=== PATIENT | male | born 1955 ===

== ENCOUNTER 2018-08-15 17:51 | Emergency (ER) | payer OTHER ==
--- NOTE | 2018-08-15 17:58 | EDPHY ---
H & P Time Seen by Provider: 08/15/18 17:57 HPI/ROS: CHIEF COMPLAINT: Angioedema HISTORY OF PRESENT ILLNESS: The patient presents to the ED with angioedema. He has been on lisinopril for approximately 10 years. He did have some mild symptoms of lip swelling a week ago. The patient denies any prior history of anaphylaxis or food-borne allergy. The patient denies any additional acute complaints. REVIEW OF SYSTEMS: A comprehensive 10 point review of systems is otherwise negative aside from elements mentioned in the history of present illness. Source: Patient Exam Limitations: No limitations - Medical/Surgical History Hx Diabetes: Yes - Social History Smoking Status: Never smoked - Physical Exam Exam: General Appearance: Alert, no distress Eyes: Pupils equal and round no pallor or injection ENT, Mouth: Mild angioedema noted of the tongue Respiratory: There are no retractions, lungs are clear to auscultation Cardiovascular: Regular rate and rhythm Gastrointestinal: Abdomen is soft and nontender, no masses, bowel sounds normal Neurological: A&O, normal motor function, normal sensory exam, normal cranial nerves Skin: Warm and dry, no rashes Musculoskeletal: Neck is supple nontender Extremities: symmetrical, full range of motion Psychiatric: Patient is oriented X 3, there is no agitation Constitutional: Initial Vital Signs Temperature (C) 36.8 C 08/15/18 17:58 Heart Rate 64 08/15/18 17:58 Respiratory Rate 18 08/15/18 17:58 Blood Pressure 128/93 H 08/15/18 17:58 O2 Sat (%) 95 08/15/18 17:58 O2 Delivery Mode Room Air Allergies/Adverse Reactions: No Known Allergies Allergy (Unverified 08/15/18 18:01) Home Medications: Medication Instructions Recorded Amlodipine Besylate 07/30/13 Lisinopril 07/30/13 Potassium 07/30/13 Allopurinol 12/30/16 Doxazosin Mesylate 12/30/16 Herbals/Supplements -Info Only 12/30/16 Levothyroxine 12/30/16 Metoprolol Succinate 12/30/16 Triamterene-Hctz 37.5-25 mg Cp 12/30/16 Viagra 12/30/16 Medical Decision Making ED Course/Re-evaluation: Patient presents to the ED with 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 Patient was given a single dose of steroids. Patient has been informed that he should stop taking his CHANELLE-inhibitor. He should return to the ED for markedly worsening respiratory symptoms or other concerns. Patient was observed in the emergency department for an hour and half without any progression of his symptoms. The patient will be discharged home with instructions to follow up with his primary care provider tomorrow to review his antihypertensive medications. Differential Diagnosis: Differential diagnosis considered includes anaphylaxis, angioedema, abscess Departure - Departure Disposition: Home, Routine, Self-Care Clinical Impression: Angioedema Condition: Good Instructions: Angioedema (ED) Additional Instructions: 1. Please stop taking your lisinopril. 2. Return to the ED for increased swelling or difficulty breathing. 3. Follow up with your regular physician to review your blood pressure medications.
[2018-08-15] MEDS ORDERED: methylPREDNISolone SOD SUCC 125 MG/2 ML VIAL IVP ONE (18:12)
[2018-08-15] MEDS ORDERED: NS 1,000 ML IV ONE (19:11)
[2018-08-15 19:19] VITALS: BP 131/87
== END 2018-08-15 19:28 | disposition home or self-care (01) ==
DX: T78.3XXA Angioneurotic edema, initial encounter (principal); T38.0X5A Adverse effect of glucocorticoids and synthetic analogues, initial encounter; L27.0 Generalized skin eruption due to drugs and medicaments taken internally
CPT/HCPCS: 96374; J1200; J2930

== ENCOUNTER → 2018-09-01 | Outpatient (CLI) | payer OTHER | LOC: BRMIMAGING 08:15 | PROVIDERS: ATTEND Internal Medicine Endocrinology, Diabetes & Metabolism | DX: Z13.820 Encounter for screening for osteoporosis (principal); M85.89 Other specified disorders of bone density and structure, multiple sites; Z79.899 Other long term (current) drug therapy ==

== ENCOUNTER 2018-11-02 08:58 | Day surgery (SDC) | payer OTHER ==
[2018-11-02] MEDS ORDERED: BACITRACIN ZINC 0.5 OZ OINTTUBE TP ONE (09:39)
[2018-11-02] MEDS ORDERED: LIDO/EPI 1% **Not for Epidural 20 ML MDV ONE (09:40)
[2018-11-02] MEDS ORDERED: MIDAZOLAM 2 MG/2 ML VIAL IVP ONE (10:13)
--- NOTE | 2018-11-02 10:22 | PDANEPAE ---
ANE Past Medical History - Cardiovascular History Hx Hypertension: Yes Hx Arrhythmias: No Hx Chest Pain: No Hx Coronary Artery / Peripheral Vascular Disease: No Hx CHF / Valvular Disease: No Hx Palpitations: No - Pulmonary History Hx COPD: No Hx Asthma/Reactive Airway Disease: No Hx Recent Upper Respiratory Infection: No Hx Oxygen in Use at Home: Yes Hx Sleep Apnea: Yes Sleep Apnea Screening Result - Last Documented: Positive Pulmonary History Comment: POS ASHKAN CPAP W/O2 - Neurologic History Hx Cerebrovascular Accident: No Hx Seizures: No Hx Dementia: No - Endocrine History Hx Diabetes: Yes Endocrine History Comment: HYPOTHYROID - Renal History Hx Renal Disorders: No Renal History Comment: PROSTATE BPH - Liver History Hx Hepatic Disorders: No - Neurological & Psychiatric Hx Hx Neurological and Psychiatric Disorders: No - Cancer History Hx Cancer: No - Congenital Disorder History Hx Congenital Disorders: No - GI History GERD: no Hx Gastrointestinal Disorders: No - Other Health History Other Health History: Daily marijuana smoking - Chronic Pain History Chronic Pain: No - Surgical History Prior Surgeries: POLYP SINUS. 2015 HERNIA TRIPLE. COLONOSCOPY ANE Review of Systems Review of Systems: - Exercise capacity METS (RN): 5 METS ANE Patient History - Allergies Allergies/Adverse Reactions: lisinopril Allergy (Verified 11/02/18 09:47) Tongue Swelling - Home Medications Home medications: home medication list seen and reviewed Home Medications: Potassium Cl [Klor-Con 20 meq (*)] 20 meq PO BID 07/30/13 [Last Taken 11/02/18] amLODIPine BESYLATE [Norvasc 10 mg (*)] 10 mg PO DAILY 07/30/13 [Last Taken ] Allopurinol [Allopurinol 300 MG (RX)] 300 mg PO DAILY 12/30/16 [Last Taken 11/02] Doxazosin Mesylate [Cardura 4 MG (*)] 8 mg PO DAILY 12/30/16 [Last Taken ] Levothyroxine [Synthroid 200 mcg (*)] 200 mcg PO DAILY06 12/30/16 [Last Taken ] Metoprolol Tartrate [Lopressor 100 mg (*)] 100 mg PO BID 12/30/16 [Last Taken ] Triamterene/Hctz 37.5/25 [Dyazide 37.5/25 (*)] 1 each PO DAILY 12/30/16 [Last Taken 10/26/18] Cholecalciferol Vit D3 [Vitamin D3 (*)] 5,000 units PO DAILY 10/19/18 [Last Taken 11/02/18] Fluticasone Nasal [Flonase Nasal Magnolia (RX)] 2 sprays NASAL HS 10/19/18 [Last Taken 11/02/18] Losartan Potassium 100 mg PO DAILY 10/19/18 [Last Taken 11/02/18] Melatonin [Melatonin 3 MG (*)] 3 mg PO HS PRN 10/19/18 [Last Taken 11/02/18] Multivitamins [Multivitamin (*)] 1 each PO DAILY 10/19/18 [Last Taken 11/02/18] - NPO status NPO Status: no food or drink >8 hours NPO Since - Liquids (Date): 11/01/18 NPO Since - Liquids (Time): 21:00 NPO Since - Solids (Date): 11/01/18 NPO Since - Solids (Time): 21:00 - Smoking Hx Smoking Status: Never smoked - Family Anes Hx Family Hx Anesthesia Complications: NEG ANE Labs/Vital Signs - Vital Signs Vital Signs: reviewed preoperatively; see RN documention for details Height: 180.34 cm Weight: 95.254 kg ANE Physical Exam - Airway Neck exam: FROM Mallampati Score: Class 3 Mouth exam: normal dental/mouth exam - ASA Status ASA Status: II, III ANE Anesthesia Plan Anesthesia Plan: general endotracheal anesthesia
[2018-11-02] MEDS ORDERED: REMIFENTANIL HCL 1 MG VIAL ONE (10:23)
[2018-11-02] MEDS ORDERED: PROPOFOL 200 MG/20 ML VIAL ONE (10:23)
[2018-11-02] MEDS ORDERED: fentaNYL 100 MCG/2 ML INJ ONE ×2 (10:23→13:02)
[2018-11-02] MEDS ORDERED: ROCURONIUM 50 MG/5 ML VIAL ONE (10:28)
[2018-11-02] MEDS ORDERED: DEXAMETHASONE 10 MG/ML VIAL IVP ONE (10:29)
[2018-11-02] MEDS ORDERED: ceFAZolin 2 GM/DEXTROSE 100 ML IV ONE (10:29)
--- NOTE | 2018-11-02 10:30 | PDHPUP ---
History & Physical Update H&P update statement: This history and physical update is based on an assessment of the patient which was completed after admission or registration (within 24 hours), but prior to the surgery/procedure. H&P update: H&P reviewed & patient examined, no change in patient's condition since H&P completed
[2018-11-02] MEDS ORDERED: PHENYLEPHRINE HCL 100 MCG/ML SYR ONE (10:33)
[2018-11-02] MEDS ORDERED: DEXAMETHASONE 4 MG/ML VIAL ONE ×3 (10:40→10:41)
[2018-11-02] MEDS ORDERED: GLYCOPYRROLATE 0.2 MG/1 ML VIAL ONE ×2 (10:54→11:16)
[2018-11-02] MEDS ORDERED: LR 1,000 ML IV ONE (11:46)
[2018-11-02] MEDS ORDERED: ONDANSETRON 4 MG/2 ML VIAL ONE (11:56)
[2018-11-02] MEDS ORDERED: KETOROLAC 30 MG/1 ML SDV ONE (12:59)
[2018-11-02] MEDS ORDERED: HYDROmorphONE/DILAUDID 2 MG/ML INJ IVP PRN (13:00)
[2018-11-02] MEDS ORDERED: ONDANSETRON 4 MG/2 ML VIAL IVP PRN (13:00)
[2018-11-02] MEDS ORDERED: oxyCODONE IR 5 MG TAB PO PRN (13:00)
[2018-11-02] MEDS ORDERED: METOCLOPRAMIDE 10 MG/2 ML VIAL IVP PRN (13:00)
[2018-11-02] MEDS ORDERED: ALBUTEROL 3 ML DEYVIAL IH PRN (13:00)
[2018-11-02] MEDS ORDERED: DIAZEPAM 5 MG/ML 1 ML SYR IVP PRN (13:00)
[2018-11-02] MEDS ORDERED: NALOXONE HCL 0.4 MG/ML INJ IVP PRN (13:00)
[2018-11-02] MEDS ORDERED: PROMETHAZINE HCL 25 MG/ML INJ IVP PRN (13:00)
[2018-11-02] MEDS ORDERED: MEPERIDINE 25 MG/0.5 ML AMP IVP PRN (13:00)
[2018-11-02] MEDS ORDERED: LR 500 ML IV PRN (13:00)
[2018-11-02] MEDS ORDERED: D5W 1/2 NS W/ 20 KCl/L 1,000 ML IV SCH (13:15)
[2018-11-02] MEDS: fentaNYL 100 MCG/2 ML INJ IVP PRN ×2 (13:48→13:58)
--- NOTE | 2018-11-02 14:08 | POSTANESTH ---
Post Anesthetic Evaluation Cardiovascular Status: Normal, Stable Respiratory Status: Normal, Stable Level of Consciousness/Mental Status: Can Participate in Eval Pain Control: Adequate, Prn Tx Ordered Nausea/Vomiting Control: Adequate, Prn Tx Ordered Complications Possibly Related to Anesthesia: None Noted
--- NOTE | 2018-11-02 14:57 | POSTOPPROG ---
Post Op Note Date of Operation: 11/02/18 Surgeon: Catrachito Ness Tin Tie Machine Operator Automatic: Mesfin Beltre Anesthesia: GET(General Endotracheal) Pre-op Diagnosis: right parathyroid adenoma Post-op Diagnosis: right parathyroid adenoma Procedure: Removal of right parathyroid adenoma Inf/Abcess present in the surg proc area at time of surgery?: No Depth: Organ Space EBL: Minimal Total fluids administered: 1000 Complications: none Bowel Protocol: N/A Clean Closure Performed: N/A Specimen(s): Right parathyroid adenoma and right paratracheal lymph node.
[2018-11-02] MEDS ORDERED: oxyCODONE IR 5 MG TAB ONE (15:55)
--- NOTE | 2018-11-02 17:56 | PDDCSUM ---
Discharge Summary Discharge Summary: A/P Pt doing well s/p removal of R parathyroid adenoma and right paratracheal lymph node removal. Pt to f/u in office next Wendday. Will redraw calcium at that visit. S: Pt reports he is doing well and eager to go home. Pain is controlled. No nausea. Tolerating PO liquid and food O: Pt resting comfortably in bed. NAD, afebrile. Dressing in place.
[2018-11-02 18:26] VITALS: BP 110/62
--- NOTE | 2018-11-08 09:19 | GOP ---
[f rep st] OPERATIVE REPORT PATIENT NAME: SWATI COLON DATE OF : DATE OF OPERATION: 11/02/2018 SURGEON: Jeffry Ness MD VOCATIONAL TRAINING TEACHER: Mesfin Beltre MD ANESTHESIA: General endotracheal. PREOPERATIVE DIAGNOSIS: Hyperparathyroidism. POSTOPERATIVE DIAGNOSIS: Hyperparathyroidism. PROCEDURE PERFORMED: Parathyroidectomy. FINDINGS: Normal pretracheal lymph node with right parathyroid adenoma identified on frozen section, as well as intraoperative. PTH dropped from 214 to 40. ESTIMATED BLOOD LOSS: 10 mL. DESCRIPTION OF PROCEDURE: The patient was placed on the operating table in supine position. After i nduction of adequate general endotracheal anesthesia, sterile draping was performed in the standard mariah for parathyroidectomy. The entire anterior neck was prepped. Infiltration of the area surroun ding the planned incision site with 1% lidocaine with 1:100,000 parts of epinephrine was performed. Once sterile prep and drape had been completed, incision was planned and created in a naturally-occur ring skin crease midway between the sternal notch and cricoid cartilage. The incision was then heavenly ed down through the platysma muscle and subcutaneous tissues. Flaps were elevated superiorly to the level of the cricoid cartilage and inferiorly to the sternal mass. The patient had undergone prior l ocalization of the lesion which revealed that it was on the right. The strap muscles were then divid ed in the vertical midline, and the strap muscles on the right were reflected laterally off the thyro id. During this, enlargement of the soft tissues anterior to the trachea was encountered. A pretrac heal mass was dissected and sent for frozen section analysis. It was returned as consistent with marcelino ctive adenopathy. As dissection then proceeded further deeply to the right thyroid lobe where the le bi had been localized, a mass was encountered posterior to the right thyroid lobe. Circumferential dissection of this mass was then performed, with care given to the avoidance of injury to the recurr ent laryngeal nerve. The recurrent laryngeal nerve remained deep and lateral to the right neck mass. Once the mass had been circumferentially dissected, it was sent for frozen section analysis and fou nd to be consistent with parathyroid adenoma. The patient had undergone preoperative parathormone le vels of 214. These were checked 10 minutes after excision of the lesion and were found to be 40. At this point, the strap muscles were reapproximated in the vertical midline utilizing 3-0 Vicryl sutur es. A deep layer closure of the wound was performed utilizing 3-0 Vicryl sutures. The skin was clos ed utilizing interrupted 5-0 Prolene sutures. At this point, a sterile pressure dressing was applied to the patient's neck, followed by bacitracin. He was then awakened and transferred to the postanes [facility] recovery area in stable condition. FLUID REPLACEMENT: 1000 mL. COMPLICATIONS: None. /[id number]/MODL
== END 2018-11-02 18:12 | disposition home or self-care (01) ==
LOC: FSGY 08:58 → UNDOADMOB 08:58 → F3N 08:58 → EDSTATUS 10:30 → F3E 13:34 → F3N 13:34 → FSGY 18:12 → UNDODISOB 18:12
PROVIDERS: ATTEND Otolaryngology
PROC: 0GBL0ZX Excision of Right Superior Parathyroid Gland, Open Approach, Diagnostic (ICD-10-PCS; principal; 2018-11-02 10:30)
PROC: 0GB Endocrine System, Excision (ICD-10-PCS; principal; 2018-11-02 10:30)
DX: E21.3 Hyperparathyroidism, unspecified (principal); I44.0 Atrioventricular block, first degree; I10 Essential (primary) hypertension; G47.33 Obstructive sleep apnea (adult) (pediatric); E11.9 Type 2 diabetes mellitus without complications; E03.9 Hypothyroidism, unspecified
CPT/HCPCS: J0690; J1100; J1885; J2250; J2370; J2405; J2704; J3010